=== PATIENT | female | born 1995 | race Caucasian/White ===

== ENCOUNTER 2018-09-16 10:00 | Emergency (ER) | payer MEDICAID, OTHER ==
[~2018-09-16] VITALS: Ht 175.3 cm; Wt 76.2 kg
[2018-09-16 10:44] LABS: Basophils # (auto) 0 uL; Basophils % (auto) 0.2 % (0.0-2.0); Eosinophils # (auto) 0 uL; Eosinophils % (auto) 0.5 % (0.0-7.0); Hematocrit 39.4 % (36.0-46.0); Hemoglobin 13.9 g/dL (12.2-16.2); Lymphocytes # (auto) 1.7 uL; Lymphocytes % (auto) 17.8 % (10.0-50.0); Mean Corpuscular Hemoglobin 30.4 pg (28.0-32.0); Mean Corpuscular Hgb Conc. 35.2 g/dL (32.0-36.0); Mean Corpuscular Volume 86.4 fL (80.0-100.0); Monocytes # (auto) 0.5 uL; Monocytes % (auto) 5.2 % (0.0-12.0); Neutrophils # (auto) 7.2 uL; Neutrophils % (auto) 76.3 % (37.0-80.0); Platelet Count (auto) 285 10^3/uL (140-450); Red Blood Cells 4.55 10^6/uL (4.0-5.20); White Blood Cell 9.5 10^3/uL (4.4-10.8)
[2018-09-16 12:55] VITALS: BP 127/62
== END 2018-09-16 13:23 | disposition home or self-care (01) ==
LOC: ER 10:02
DX: O20.8 Other hemorrhage in early pregnancy (principal); O26.891 Other specified pregnancy related conditions, first trimester; R10.9 Unspecified abdominal pain; Z3A.13 13 weeks gestation of pregnancy
CPT/HCPCS: 36415; 76801; 84702; 85025; 94761

== ENCOUNTER 2019-01-22 11:52 | Observation (INO) | payer MEDICAID ==
[2019-01-22] MEDS ORDERED: PREN-129 OR (13:53)
== END 2019-01-22 12:45 | disposition home or self-care (01) | DRG 563 ==
LOC: LDRP 11:52
PROVIDERS: ADMIT Obstetrics & Gynecology; ATTEND Obstetrics & Gynecology
DX: O60.03 Preterm labor without delivery, third trimester (principal); O26.893 Other specified pregnancy related conditions, third trimester; R11.0 Nausea; Z87.59 Personal history of other complications of pregnancy, childbirth and the puerperium; Z3A.31 31 weeks gestation of pregnancy
CPT/HCPCS: 59025; 81002; G0378

== ENCOUNTER 2019-01-30 09:06 | Outpatient (CLI) | payer MEDICAID ==
[~2019-01-30 09:06] MED LIST: PREN-129 OR
[2019-01-30] MEDS ORDERED: HYDR250I6 IM (10:32)
[2019-01-30] MEDS ORDERED: NIF10C PO (10:57)
== END 2019-01-30 10:25 | disposition home or self-care (01) ==
LOC: OB 09:06
PROVIDERS: ATTEND Obstetrics & Gynecology
DX: O47.03 False labor before 37 completed weeks of gestation, third trimester (principal); Z3A.33 33 weeks gestation of pregnancy
CPT/HCPCS: 59025; 81002

== ENCOUNTER 2019-02-06 09:00 | Observation (INO) | payer MEDICAID ==
[~2019-02-06 09:00] MED LIST changes: +HYDR250I6 IM; +NIF10C PO
== END 2019-02-06 10:10 | disposition home or self-care (01) | DRG 563 ==
LOC: LDRP 09:00
PROVIDERS: ADMIT Specialist; ATTEND Specialist
DX: O60.03 Preterm labor without delivery, third trimester (principal); Z3A.33 33 weeks gestation of pregnancy
CPT/HCPCS: 59025; 81002; G0378

== ENCOUNTER 2019-02-13 08:55 | Observation (INO) | payer MEDICAID | END 2019-02-13 09:40 | disposition home or self-care (01) | DRG 955 | LOC: LDRP 08:55 | PROVIDERS: ADMIT Obstetrics & Gynecology; ATTEND Obstetrics & Gynecology | DX: O09.211 Supervision of pregnancy with history of pre-term labor, first trimester (principal); Z3A.34 34 weeks gestation of pregnancy | CPT/HCPCS: 59025; 81002; G0378 ==

== ENCOUNTER 2019-02-20 09:00 | Observation (INO) | payer MEDICAID | END 2019-02-20 09:37 | disposition home or self-care (01) | DRG 563 | LOC: LDRP 09:00 | PROVIDERS: ADMIT Obstetrics & Gynecology; ATTEND Obstetrics & Gynecology | DX: O60.03 Preterm labor without delivery, third trimester (principal); Z3A.35 35 weeks gestation of pregnancy | CPT/HCPCS: 59025; 81002; G0378 ==

== ENCOUNTER 2019-02-27 09:51 | Observation (INO) | payer MEDICAID ==
[2019-02-27] MEDS ORDERED: FOLI1TAB6 PO (10:40)
== END 2019-02-27 10:30 | disposition home or self-care (01) | DRG 563 ==
LOC: LDRP 09:51
PROVIDERS: ADMIT Specialist; ATTEND Specialist
DX: O60.03 Preterm labor without delivery, third trimester (principal); Z3A.36 36 weeks gestation of pregnancy
CPT/HCPCS: 59025; 81002; G0378

== ENCOUNTER 2019-03-12 23:45 | Inpatient (IN) | payer MEDICAID ==
[~2019-03-12] VITALS: Ht 175.3 cm; Wt 93.4 kg
[~2019-03-12 23:45] MED LIST changes: +FOLI1TAB6 PO; -HYDR250I6 IM; -NIF10C PO
[2019-03-13] MEDS ORDERED: LACT. RINGERS/OXYTOCIN 20UNITS 1,000 ML IV SCH ×2 (00:15→05:48)
[2019-03-13] MEDS ORDERED: NALBUPHINE HCL 10 MG/1ml INJECTION IV PRN (00:15)
[2019-03-13] MEDS ORDERED: METHYLERGONOVINE MALEATE 0.2 MG/ML AMP IM PRN (00:15)
[2019-03-13] MEDS ORDERED: PENICILLIN G POT 5MIL/D5 50ML 50 ML IV ONE (00:15)
[2019-03-13] MEDS ORDERED: CARBOPROST TROMETHAMINE 250 MCG/1ML VIAL IM PRN (00:15)
[2019-03-13] MEDS ORDERED: LIDOCAINE 2%HCL (LOCAL ANESTH.) INJ 20ML MDV ID ONE (00:15)
[2019-03-13] MEDS: PHISODERM TOP SOLN 240ML BTL TOP PRN ×2 (00:32→17:18)
[2019-03-13] MEDS: DERMOPLAST 60ML BOTTLE TOP PRN ×2 (00:32→17:18)
[2019-03-13] MEDS: WITCH HAZEL-GLYCERIN PAD TOP PRN ×2 (00:32→17:18)
[2019-03-13 01:18] LABS: Basophils # (auto) 0.2 uL; Basophils % (auto) 1.8 % (0.0-2.0); Eosinophils # (auto) 0.1 uL; Eosinophils % (auto) 0.8 % (0.0-7.0); Hematocrit 34.9 % (36.0-46.0); Hemoglobin 11.7 g/dL (12.2-16.2); Lymphocytes # (auto) 2.2 uL; Lymphocytes % (auto) 16.1 % (10.0-50.0); Mean Corpuscular Hemoglobin 29.6 pg (28.0-32.0); Mean Corpuscular Hgb Conc. 33.7 g/dL (32.0-36.0); Mean Corpuscular Volume 87.8 fL (80.0-100.0); Monocytes # (auto) 0.7 uL; Monocytes % (auto) 5.5 % (0.0-12.0); Neutrophils # (auto) 10.2 uL; Neutrophils % (auto) 75.8 % (37.0-80.0); Platelet Count (auto) 206 10^3/uL (140-450); Red Blood Cells 3.97 10^6/uL (4.0-5.20); Red Cell Distribution Width 14.2 % (11.8-14.3); White Blood Cell 13.4 10^3/uL (4.4-10.8)
[2019-03-13 01:20] LABS: Urine Bacteria NONE SEEN /hpf (None Seen); Urine Blood 1+ /uL (Negative); Urine Budding Yeast OCCASIONAL /hpf (None Seen); Urine Specific Gravity 1.012 (1.001-1.035); Urine WBC 4 /hpf (0 - 5)
[2019-03-13 01:33] LABS: Partial Thromboplastin Time 27.3 sec (23.64-32.05)
[2019-03-13 01:35] LABS: BUN/Creatinine Ratio 21.4; Calcium 8.8 mg/dL (8.5-10.1); Potassium 3.6 mmol/L (3.5-5.1)
[2019-03-13 01:41] LABS: Albumin 2.4 g/dL (3.4-5.0); Bilirubin, Total 0.2 mg/dL (0.2-1.0)
[2019-03-13] MEDS: PENICILLIN G POTASSIUM 2,500,000 UNITS in D5W 5% 50 ML IV SCH ×3 (04:14→11:54)
[2019-03-13] MEDS ORDERED: LACTATED RINGER'S 1,000 ML IV SCH (04:36)
[2019-03-13] MEDS ORDERED: TERBUTALINE SULFATE 1 MG/ML 1ML VIAL SC ONE (06:00)
[2019-03-13] MEDS ORDERED: ePHEDrine SULFATE 50 MG/ML AMP IV ONE ×2 (11:15→12:00)
[2019-03-13] MEDS ORDERED: fentaNYL CITRATE 100 MCG/2 ML VL IV ONE ×2 (11:15→12:00)
[2019-03-13] MEDS ORDERED: LIDOCAINE HCL 2 %PF INJ 10ML AMP IJ ONE ×2 (11:15→12:00)
[2019-03-13] MEDS ORDERED: fentaNYL W ROPIVACAINE 150 ML EPI SCH ×2 (11:15→12:00)
[2019-03-13] MEDS ORDERED: NALOXONE HCL 0.4 MG/ML VIAL IV ONE ×2 (11:15→12:00)
[2019-03-13] MEDS ORDERED: HYDROmorphone HCL 2 MG/ML VL IV PRN (12:30)
[2019-03-13] MEDS ORDERED: MORPHINE SULFATE 4 MG/ML SYR/VIAL IV PRN (12:30)
[2019-03-13] MEDS ORDERED: ePHEDrine SULFATE 50 MG/ML AMP IV PRN (12:30)
[2019-03-13] MEDS ORDERED: fentaNYL CITRATE 100 MCG/2 ML VL IV PRN (12:30)
[2019-03-13] MEDS ORDERED: METOCLOPRAMIDE HCL 5MG/ml INJ 2ml VIAL IV PRN (12:30)
[2019-03-13] MEDS ORDERED: METHYLERGONOVINE MALEATE 0.2 MG/ML AMP IM ONE ×2 (14:36→15:45)
[2019-03-13] MEDS ORDERED: ACETAMINOPHEN 325 MG TAB PO PRN (15:45)
[2019-03-13 17:00] VITALS: BP 114/89
--- NOTE | 2019-03-13 17:00 | NUR ---
Ambulation: Patient OOB with standby assistance by RN. Patient ambulated to bathroom with steady gait. Patient able to void without difficulty. Pericare teaching provided with returned demonstration by patient. Clean gown provided and bed linen changed. Patient ambulated back to bed with steady gait and no distress noted.
[2019-03-13] MEDS: IBUPROFEN 600 MG TAB PO PRN ×2 (17:12→20:38)
[2019-03-13 19:00] VITALS: BP 121/60
[2019-03-13 23:30] VITALS: BP 108/56
[2019-03-14 03:00] VITALS: BP 112/68
[2019-03-14] MEDS: IBUPROFEN 600 MG TAB PO PRN ×3 (03:56→15:55)
[2019-03-14 05:07] LABS: RPR Non Reactive (Non Reactive)
[2019-03-14] MEDS ORDERED: RHO (D) IMMUNE GLOBULIN 300 MCG INJ IM ONE (05:30)
[2019-03-14 07:10] VITALS: BP 108/62
--- NOTE | 2019-03-14 09:35 | NUR ---
IV removal IV DC'd with clean sterile technique, catheter fully intact. Pressure dressing applied to site. Patient tolerated well.
[2019-03-14 11:20] VITALS: BP 113/66
[2019-03-14] MEDS ORDERED: MEASLES, MUMPS & RUBELLA VAC(MMRII) 0.5ML SC ONE (14:15)
[2019-03-14 15:30] VITALS: BP 119/74
--- NOTE | 2019-03-14 16:45 | NUR ---
Discharge: Discharge instructions given as ordered. Pt encouraged to follow up with [facility] as instructed. All questions and concerns addressed. Patient verbalized understanding. Medication reconciliation completed and copy given to patient. All required/requested vaccines given and copies of vaccinations given to patient. Patient encouraged to prepare to depart unit.
--- NOTE | 2019-03-14 16:50 | NUR ---
Discharge: Patient taken to vehicle via wheelchair with all personal belongings, accompanied by staff and family member. No distress noted at time of departure, no adverse changes in status since initial assessment.
== END 2019-03-14 16:50 | disposition home or self-care (01) | DRG 560 ==
LOC: LDRP 23:45 → OBSVTOIN 03-13 → LDRP 03-13 10:18
PROVIDERS: ADMIT Obstetrics & Gynecology; ATTEND Obstetrics & Gynecology
PROC: 10E0XZZ Delivery of Products of Conception, External Approach (ICD-10-PCS; principal; 2019-03-13)
PROC: 3E0R3BZ Introduction of Anesthetic Agent into Spinal Canal, Percutaneous Approach (ICD-10-PCS; 2019-03-13)
PROC: 00HU33Z Insertion of Infusion Device into Spinal Canal, Percutaneous Approach (ICD-10-PCS; 2019-03-13)
PROC: 10907ZC Drainage of Amniotic Fluid, Therapeutic from Products of Conception, Via Natural or Artificial Opening (ICD-10-PCS; 2019-03-13)
PROC: 3E0234Z Introduction of Serum, Toxoid and Vaccine into Muscle, Percutaneous Approach (ICD-10-PCS; 2019-03-14)
DX: O62.3 Precipitate labor (principal); O26.893 Other specified pregnancy related conditions, third trimester; O70.1 Second degree perineal laceration during delivery; O99.824 Streptococcus B carrier state complicating childbirth; Z37.0 Single live birth; Z3A.38 38 weeks gestation of pregnancy; Z67.41 Type O blood, Rh negative
CPT/HCPCS: 36415; 59025; 59409; 62282; 80053; 81001; 81002; 84112; 85025; 85610; 85730; 86592; 86850; 86900; 86901; 90384; 90471; 94762; 96361; 96365; 96366; 96372; 96374; G0378; J2540; J2590; J3010; J7060